=== PATIENT | male | born 1940 | race Hispanic/Latino ===

== ENCOUNTER 2021-12-19 22:51 | Inpatient (IN) | payer MEDICARE ==
[~2021-12-19] VITALS: Ht 185.4 cm; Wt 77.1 kg
[2021-12-20 01:49] LABS: APPEARANCE,URINE Clear (CLEAR); BILIRUBIN,URINE Negative (NEGATIVE); COLOR,URINE Yellow (YELLOW); GLUCOSE, URINE (UA) Negative (NEGATIVE); KETONES,URINE Negative (NEGATIVE); LEUKOCYTE ESTERASE ,URINE Trace (NEGATIVE); NITRATE,URINE Negative (NEGATIVE); OCCULT BLOOD,URINE Negative (NEGATIVE); PROTEIN,URINE Negative (NEGATIVE)
[2021-12-20 02:00] LABS: BACTERIA,URINE None Seen /HPF (None Seen); RBC,URINE None Seen /HPF (0-1); WBC,URINE None Seen /HPF (0-1)
[2021-12-20 02:48] LABS: CREATININE 0.9 mg/dL (0.5-1.5); POTASSIUM 3.5 mmol/L (3.5-5.1)
[2021-12-20 02:53] LABS: ALBUMIN 3.6 g/dL (3.5-5.0); BILIRUBIN,TOTAL 0.3 mg/dL (0.2-1.0); MAGNESIUM 2.1 mg/dL (1.80-2.40); TOTAL PROTEIN, SERUM 7.2 g/dL (6.0-8.3)
[2021-12-20 07:28] LABS: EOSINOPHILS % (AUTO) 2.9 % (0.0-8.0); HEMATOCRIT 41.6 % (42-54); LYMPHOCYTES % (AUTO) 21.5 % (21.0-51.0); MEAN CORPUSCULAR HEMOGLOBIN 29.2 pg (27.0-33.0); MEAN CORPUSCULAR VOLUME 91.2 fL (79-99); MONOCYTES % (AUTO) 10.4 % (3.0-13.0); NEUTROPHILS % (AUTO) 63.8 % (40.0-77.0); PLATELET COUNT (AUTO) 258 K/uL (130-400); RED BLOOD CELL COUNT(AUTO) 4.56 MIL/uL (4.50-6.20); RED CELL DISTRIBUTION WIDTH 13.8 % (11.0-15.5); WHITE BLOOD COUNT (AUTO) 8.3 K/uL (4.8-10.8)
[2021-12-20 08:15] VITALS: BP 160/76
[2021-12-20] MEDS ORDERED: LACTATED RINGERS 1000ML 1,000 ML IV SCH (08:30)
[2021-12-20] MEDS ORDERED: FAMOTIDINE 20MG VIAL IV SCH (09:00)
== END 2021-12-20 09:03 | disposition left against medical advice (07) | DRG 74 ==
LOC: EDH 22:51 → EDHIP 12-20 08:25 → EDH 12-20 09:15
PROVIDERS: ADMIT Internal Medicine; ATTEND Internal Medicine
DX: M54.12 Radiculopathy, cervical region (principal); G95.20 Unspecified cord compression; Z90.49 Acquired absence of other specified parts of digestive tract
CPT/HCPCS: 36415; 70450; 72125; 72141; 80053; 81001; 82550; 83735; 83880; 84484; 85025; 93005; G0378; J3490

== ENCOUNTER 2021-12-25 23:48 | Observation (INO) | payer MEDICARE ==
[~2021-12-25] VITALS: Ht 185.4 cm; Wt 86.2 kg
[2021-12-25] MEDS ORDERED: ACETAMINOPHEN 500 MG TABLET ONE (23:55)
[2021-12-26 00:11] LABS: BASOPHILS % (AUTO) 0.3 % (0.0-5.0); HEMATOCRIT 39.5 % (42-54); LYMPHOCYTES % (AUTO) 5.5 % (21.0-51.0); MEAN CORPUSCULAR HEMOGLOBIN 28.4 pg (27.0-33.0); MEAN CORPUSCULAR HGB CONC 32.4 g/dL (32.0-36.0); MEAN CORPUSCULAR VOLUME 87.6 fL (79-99); MONOCYTES % (AUTO) 8.8 % (3.0-13.0); PLATELET COUNT (AUTO) 229 K/uL (130-400); RED BLOOD CELL COUNT(AUTO) 4.51 MIL/uL (4.50-6.20); RED CELL DISTRIBUTION WIDTH 13.8 % (11.0-15.5); WHITE BLOOD COUNT (AUTO) 12.6 K/uL (4.8-10.8)
[2021-12-26 00:24] LABS: POTASSIUM 3.9 mmol/L (3.5-5.1)
[2021-12-26 00:28] LABS: APPEARANCE,URINE CLEAR (CLEAR); BILIRUBIN,URINE NEGATIVE (NEGATIVE); COLOR,URINE YELLOW (YELLOW); GLUCOSE, URINE (UA) NEGATIVE (NEGATIVE); KETONES,URINE 15 mg/dL (NEGATIVE); LEUKOCYTE ESTERASE ,URINE NEGATIVE (NEGATIVE); NITRATE,URINE NEGATIVE (NEGATIVE); OCCULT BLOOD,URINE NEGATIVE (NEGATIVE); PROTEIN,URINE NEGATIVE (NEGATIVE)
[2021-12-26 00:29] LABS: ALBUMIN 3.5 g/dL (3.5-5.0); BILIRUBIN,TOTAL 0.7 mg/dL (0.2-1.0); CRP QUANTITATIVE 44.8 mg/L (0.00-9.0); TOTAL PROTEIN, SERUM 7.8 g/dL (6.0-8.3)
[2021-12-26 00:41] LABS: BACTERIA,URINE Rare /HPF (None Seen); RBC,URINE None Seen /HPF (0-1); SQUAMOUS EPITHELIAL CELL,UR 0-2 /HPF (0-2); WBC,URINE 0-1 /HPF (0-1)
[2021-12-26] MEDS ORDERED: ACETAMINOPHEN 650 MG SUPPOSITORY RC PRN (03:00)
[2021-12-26] MEDS ORDERED: MORPHINE 4 MG SYG IV PRN (04:00)
[2021-12-26] MEDS ORDERED: HYDROCODONE/ACETAMINOPHEN 5/325 MG TAB PO PRN (04:00)
[2021-12-26] MEDS: 0.9%NACL 1000ML 1,000 ML IV SCH ×2 (04:20→16:20)
[2021-12-26 07:06] LABS: INR 1.06 (0.85-1.15); PROTHROMBIN TIME 11.5 SEC (9.6-11.6)
[2021-12-26] MEDS: PANTOPRAZOLE 40 MG/VIAL IVP SCH (09:03)
[2021-12-26 10:29] LABS: BASOPHILS % (AUTO) 0.5 % (0.0-5.0); EOSINOPHILS % (AUTO) 0.8 % (0.0-8.0); HEMATOCRIT 36.6 % (42-54); LYMPHOCYTES % (AUTO) 18.4 % (21.0-51.0); MEAN CORPUSCULAR HEMOGLOBIN 29.5 pg (27.0-33.0); MEAN CORPUSCULAR HGB CONC 32.5 g/dL (32.0-36.0); MEAN CORPUSCULAR VOLUME 90.8 fL (79-99); MONOCYTES % (AUTO) 15.8 % (3.0-13.0); NEUTROPHILS % (AUTO) 64.2 % (40.0-77.0); PLATELET COUNT (AUTO) 224 K/uL (130-400); RED BLOOD CELL COUNT(AUTO) 4.03 MIL/uL (4.50-6.20); RED CELL DISTRIBUTION WIDTH 13.8 % (11.0-15.5); WHITE BLOOD COUNT (AUTO) 9.8 K/uL (4.8-10.8)
[2021-12-26 10:48] LABS: ALBUMIN 3.1 g/dL (3.5-5.0); BILIRUBIN,TOTAL 1.1 mg/dL (0.2-1.0); CRP QUANTITATIVE 59.4 mg/L (0.00-9.0); POTASSIUM 3.7 mmol/L (3.5-5.1); TOTAL PROTEIN, SERUM 7.1 g/dL (6.0-8.3)
[2021-12-26 12:14] LABS: ERYTHROCYTE SEDIMENTATION RATE 52 MM/HR (0-20)
[2021-12-26] MEDS ORDERED: CEFTRIAXONE 2GM VIAL ONE (12:43)
[2021-12-26] MEDS: CEFTRIAXONE 2GM VIAL IVP SCH (13:00)
[2021-12-26 18:30] VITALS: BP 154/79
[2021-12-26 19:46] VITALS: BP 144/69
[2021-12-26 23:51] VITALS: BP 141/68
[2021-12-27 03:34] VITALS: BP 160/77
[2021-12-27 03:47] LABS: BASOPHILS % (AUTO) 0.7 % (0.0-5.0); EOSINOPHILS % (AUTO) 2.1 % (0.0-8.0); HEMATOCRIT 37.7 % (42-54); MEAN CORPUSCULAR HEMOGLOBIN 28.4 pg (27.0-33.0); MEAN CORPUSCULAR HGB CONC 32.4 g/dL (32.0-36.0); MEAN CORPUSCULAR VOLUME 87.7 fL (79-99); MONOCYTES % (AUTO) 11.2 % (3.0-13.0); NEUTROPHILS % (AUTO) 67.6 % (40.0-77.0); PLATELET COUNT (AUTO) 216 K/uL (130-400); RED CELL DISTRIBUTION WIDTH 13.4 % (11.0-15.5); WHITE BLOOD COUNT (AUTO) 7.5 K/uL (4.8-10.8)
[2021-12-27 04:05] LABS: CREATININE 0.9 mg/dL (0.5-1.5); POTASSIUM 3.7 mmol/L (3.5-5.1)
[2021-12-27] MEDS: 0.9%NACL 1000ML 1,000 ML IV SCH (05:40)
[2021-12-27 06:46] LABS: MAGNESIUM 2.1 mg/dL (1.80-2.40)
[2021-12-27 07:00] VITALS: BP 127/61
[2021-12-27] MEDS: PANTOPRAZOLE 40 MG/VIAL IVP SCH (08:19)
[2021-12-27] MEDS ORDERED: KETOROLAC 15MG/ML VIAL (15MG/ML) IV SCH (10:30)
[2021-12-27 11:00] VITALS: BP_SYST 116; BP_SYST 119; BP_SYST 126; BP_DIAS 55; BP_DIAS 56; BP_DIAS 59
[2021-12-27 11:00] LABS: HEMOGLOBIN A1C 5.8 % (4.0-6.0)
[2021-12-27] MEDS: CEFTRIAXONE 2GM VIAL IVP SCH (11:16)
[2021-12-27] MEDS ORDERED: CEFU500T67 PO (14:31)
[2021-12-27 15:00] VITALS: BP 137/86
== END 2021-12-27 19:05 | disposition still patient (30) ==
LOC: EDH 23:48 → INTOOBSV 12-26 02:57 → EDHIP 12-26 02:57 → 4CH 12-26 18:02
PROVIDERS: ADMIT Internal Medicine; ATTEND Internal Medicine
DX: M47.22 Other spondylosis with radiculopathy, cervical region (principal); Z20.822 Contact with and (suspected) exposure to COVID-19; M50.21 Other cervical disc displacement, high cervical region; M17.0 Bilateral primary osteoarthritis of knee; R50.9 Fever, unspecified; R26.89 Other abnormalities of gait and mobility; I80.8 Phlebitis and thrombophlebitis of other sites; D72.829 Elevated white blood cell count, unspecified; L03.114 Cellulitis of left upper limb; R42 Dizziness and giddiness; E66.9 Obesity, unspecified; W18.39XA Other fall on same level, initial encounter; Y93.89 Activity, other specified; Y92.098 Other place in other non-institutional residence as the place of occurrence of the external cause; Z79.899 Other long term (current) drug therapy
CPT/HCPCS: 36415 ×3; 71045; 73562; 76882; 80048; 80053 ×2; 81001; 82550 ×2; 83036; 83605; 83735 ×3; 84100; 84145 ×2; 84484; 85025 ×3; 85610; 85651 ×2; 85730; 86140 ×3; 86850; 86900; 86901; 87040 ×2; 87635; 87804 ×2; 93005; 93970; 96361 ×2; 96374; 96375 ×2; 96376; 97039 ×2; 97161; 99285; C9113 ×2; C9803; G0378 ×3; J0696 ×2; J1885; J7030

== ENCOUNTER 2023-05-16 20:54 | Emergency (ER) | payer MEDICARE, OTHER ==
[~2023-05-16] VITALS: Ht 177.8 cm; Wt 81.6 kg
[~2023-05-16 20:54] MED LIST: CEFU500T67 PO
[2023-05-16 21:23] LABS: BASOPHILS % (AUTO) 0.5 % (0.0-5.0); EOSINOPHILS % (AUTO) 0.6 % (0.0-8.0); HEMATOCRIT 39.4 % (42-54); LYMPHOCYTES % (AUTO) 12.8 % (21.0-51.0); MEAN CORPUSCULAR HEMOGLOBIN 29.7 pg (27.0-33.0); MEAN CORPUSCULAR HGB CONC 33.5 g/dL (32.0-36.0); MEAN CORPUSCULAR VOLUME 88.7 fL (79-99); MONOCYTES % (AUTO) 14.8 % (3.0-13.0); NEUTROPHILS % (AUTO) 70.9 % (40.0-77.0); PLATELET COUNT (AUTO) 248 K/uL (130-400); RED BLOOD CELL COUNT(AUTO) 4.44 MIL/uL (4.50-6.20); RED CELL DISTRIBUTION WIDTH 13.6 % (11.0-15.5); WHITE BLOOD COUNT (AUTO) 8.2 K/uL (4.8-10.8)
[2023-05-16 21:53] LABS: CREATININE 1.5 mg/dL (0.5-1.5); POTASSIUM 4.2 mmol/L (3.5-5.1)
[2023-05-16 22:03] LABS: ALBUMIN 3.4 g/dL (3.5-5.0); TOTAL PROTEIN, SERUM 8.3 g/dL (6.0-8.3)
[2023-05-17 01:17] LABS: BILIRUBIN,URINE 0.5 mg/dL (NEGATIVE); COLOR,URINE YELLOW (YELLOW); GLUCOSE, URINE (UA) NEGATIVE (NEGATIVE); KETONES,URINE NEGATIVE (NEGATIVE); LEUKOCYTE ESTERASE ,URINE NEGATIVE Leu/uL (NEGATIVE); NITRATE,URINE NEGATIVE (NEGATIVE); OCCULT BLOOD,URINE NEGATIVE (NEGATIVE); PH,URINE 5.5 (5.0-8.0); PROTEIN,URINE 30 mg/dL (NEGATIVE)
[2023-05-17 01:19] LABS: APPEARANCE,URINE CLEAR (CLEAR)
[2023-05-17] MEDS ORDERED: ACETAMINOPHEN 325 MG TAB PO ONE (03:00)
[2023-05-17 03:24] VITALS: BP 114/57
[2023-05-17] MEDS ORDERED: POLY17PO4 PO (04:07)
== END 2023-05-17 04:19 | disposition home or self-care (01) ==
LOC: EDH 20:54
DX: N28.89 Other specified disorders of kidney and ureter (principal); K59.00 Constipation, unspecified; M54.50 Low back pain, unspecified; I71.43 Infrarenal abdominal aortic aneurysm, without rupture; F17.200 Nicotine dependence, unspecified, uncomplicated; Z90.49 Acquired absence of other specified parts of digestive tract
CPT/HCPCS: 36415; 71045; 74018; 74176; 80053; 81003; 83605; 83690; 84484; 85025; 93005

== ENCOUNTER 2025-03-31 20:59 | Observation (INO) | payer OTHER ==
[~2025-03-31] VITALS: Ht 182.9 cm; Wt 94.4 kg
[~2025-03-31 20:59] MED LIST changes: +POLY17PO4 PO
[2025-03-31 21:46] LABS: BASOPHILS # (AUTO) 0.02 K/uL (0.00-0.20); BASOPHILS % (AUTO) 0.2 % (0.0-5.0); EOSINOPHILS # (AUTO) 0.01 K/uL (0.00-0.70); EOSINOPHILS % (AUTO) 0.1 % (0.0-8.0); HEMATOCRIT 38.6 % (42-54); IMMATURE GRANULOCYTE ABSOLUTE 0.06 K/uL (0-1); LYMPHOCYTES # (AUTO) 0.6 K/uL (1.0-4.8); LYMPHOCYTES % (AUTO) 4.6 % (21.0-51.0); MEAN CORPUSCULAR HEMOGLOBIN 29.1 pg (27.0-33.0); MEAN CORPUSCULAR HGB CONC 33.4 g/dL (32.0-36.0); MEAN CORPUSCULAR VOLUME 87.1 fL (79-99); MONOCYTES # (AUTO) 1.3 K/uL (0.1-1.0); MONOCYTES % (AUTO) 10.2 % (3.0-13.0); NEUTROPHILS # (AUTO) 10.9 K/uL (1.8-7.7); NEUTROPHILS % (AUTO) 84.4 % (40.0-77.0); PLATELET COUNT (AUTO) 249 K/uL (130-400); RED BLOOD CELL COUNT(AUTO) 4.43 MIL/uL (4.50-6.20); RED CELL DISTRIBUTION WIDTH 13.8 % (11.0-15.5); WHITE BLOOD COUNT (AUTO) 12.9 K/uL (4.8-10.8)
[2025-03-31] MEDS: 0.9%NACL 1000ML 1,000 ML IV ONE (22:04)
[2025-03-31] MEDS: mecliZINE HCL 25 MG TABLET PO ONE (22:04)
--- NOTE | 2025-03-31 22:36 | HMCIMG ---
CT HEAD/BRAIN W/O CONTRAST HISTORY: Dizziness COMPARISON: None TECHNIQUE: Multiple sequential axial images of the head were obtained from the base of the skull through vertex. Patient was not given contrast through intravenous route. FINDINGS: The ventricles and extraventricular CSF spaces are dilated consistent with cerebral atrophy. Nonspecific white matter changes seen. There is no midline shift, mass effect or herniation. No acute intracranial bleed is seen. Visualized portion of the paranasal sinuses are grossly within normal limits. IMPRESSION: 1. No acute intracranial bleed is seen. 2. Atrophy with white matter changes. CT was performed with one or more following dose reduction techniques: automated exposure control, adjustment of the mA and kv according to patient's size, or use of a iterative reconstruction technique.
[2025-03-31 22:39] LABS: CREATININE 1.3 mg/dL (0.5-1.3); POTASSIUM 4.6 mmol/L (3.5-5.1)
[2025-03-31 22:42] LABS: B-TYPE NATRIURETIC PEPTIDE 58 pg/mL (0-100)
[2025-03-31 22:44] LABS: MAGNESIUM 2.2 mg/dL (1.80-2.40)
--- NOTE | 2025-03-31 22:54 | HMCIMG ---
KNEE 3VWS LT HISTORY: Dizziness COMPARISON: None TECHNIQUE: 3 images of the left knee were obtained. FINDINGS: There is no acute displaced fracture or dislocation. Degenerative changes are seen. IMPRESSION: 1. Findings as described above.
--- NOTE | 2025-03-31 22:55 | HMCIMG ---
KNEE 3VWS RT HISTORY: Dizziness COMPARISON: None TECHNIQUE: 3 images of left knee were obtained. FINDINGS: There is no acute displaced fracture or dislocation. Degenerative changes are seen. IMPRESSION: 1. Findings as described above.
--- NOTE | 2025-03-31 22:55 | HMCIMG ---
WRIST COMP 3+VWS RT HISTORY: Dizziness COMPARISON: None TECHNIQUE: 3 images of the right wrist were obtained. FINDINGS: There is no acute displaced fracture or dislocation. Degenerative changes are seen. IMPRESSION: 1. Findings as described above.
--- NOTE | 2025-03-31 22:56 | HMCIMG ---
CHEST 1VW HISTORY: Dizziness COMPARISON: 05/16/2023 FINDINGS: A frontal projection of the chest was obtained. No acute pulmonary infiltrates is seen. The heart is borderline enlarged. Degenerative changes are seen. No evidence of aortic calcification is seen. IMPRESSION: 1. No acute pulmonary infiltrate is seen.
[2025-03-31] MEDS: ketOROlac 15MG/ML VIAL (15MG/ML) IV ONE (23:31)
--- NOTE | 2025-03-31 23:43 | ERN ---
ED Note History of Present Illness Stated Complaint: DIZZINESS Chief Complaint: Multiple Complaints Time Seen by MD: 21:10 Time Seen by Midlevel: 21:10 Dictation: The patient is an 84-year-old male with history of cholecystectomy who presents to the emergency department with complaints of dizziness. Patient reports onset of symptoms was two weeks ago. Reports dizziness worse with movement but reports and feeling if imbalance. Patient reports he had a ground level fall yesterday due to the dizziness. Reports he landed on his knees. Patient denies any head trauma, denies any LOC, denies any neck pain or any other injuries. Patient denies any nausea or vomiting, fevers. Patient also reports that he has been having nontraumatic intermediate right wrist pain Allergies: Coded Allergies: No Known Drug Allergies (Unverified Allergy, Unknown, 12/19/21) Home Meds Active Scripts Polyethylene Glycol 3350 (Miralax) 17 Gm Powd.pack, 17 GM PO DAILY, #30 PACK 0 Refills Prov:JEANNA ALTAMIRANO MD 05/17/23 Cefuroxime Axetil (Cefuroxime) 500 Mg Tablet, 500 MG PO BID for 7 Days, #14 TAB 0 Refills Prov:MELANIA MORGAN MD 12/27/21 Past Medical History Past Medical History: Other Additional Past Medical Hx: Cervical radiculopathy due to disc disease Surgical History: Cholecystectomy Social History: Smokers RN Note Reviewed/Agreed w/PFSH: Yes Review of System Dictation Constitutional: Negative for fever,chills, and weight loss Eyes: Negative for injury, pain,redness, and discharge ENT: Negative for injury,pain or swelling Cardiovascular: Negative for chest pain, palpitations, and edema Respiratory: Negative for shortness of breath, cough, and wheezing, Abdomen/GI: Negative for abdominal pain, nausea, vomiting, diarrhea, and constipation Back: Negative for injury and pain : Negative for injury, bleeding and discharge MS/Extremity: Positive for bilateral knee pain, right wrist pain Skin: Negative for rash, and discoloration Neuro: Negative for headache, weakness, numbness, tingling, and seizure positive for dizziness Psych: Negative for suicide ideation, homicidal ideation, and hallucinations Initial Vital Sign VS Vital Signs Date Time Temp Pulse Resp B/P (MAP) Pulse Ox O2 Delivery O2 Flow Rate FiO2 03/31/25 21:00 98.8 87 18 128/73 95 Room Air 03/31/25 22:08 0 21 Physical Exam Dictation Vital Signs reviewed General Appearance: Alert, oriented x 3, no acute distress, well developed, nourished. Head and Face: non-traumatic. Eyes: PERRL, pink conjunctivas, eyelid no trauma, anterior chamber with arcus senilis. Ears: Pinnas intact and no signs of trauma or erythema ear canals clear and no discharge TM no erythema Nose: No discharge, no bleeding. Oropharynx: Mouth normal, tongue pink. pharynx clear,no erythema, tonsils no exudates, no abscesses noted, mucous membrane moist Neck: Supple, non-tender, no thyromegaly, no masses, no JVD, no bruits Breast:Deferred Chest:No tenderness, no crepitus, no paradoxical movement, no retractions Lungs:Clear, well-ventilated, symmetric, no rales, no wheezing, no rhonchi, no stridor, good breath sounds bilaterally Heart: Regular rate, regular rhythm, no murmur, no gallops Vascular: no peripheral edema, Abdomen: Soft, positive bowel sounds, nondistended, no guarding, nontender, no rebound, no masses no hepatomegaly, no splenomegaly, no Smith's sign, no hernias. Rectal: Deferred Genital: Deferred Neurological: Normal speech, motor function intact, sensory function intact , upper extremities equal in strength, lower extremities equal in strength, no slurred speech, no facial droop Musculoskeletal: Neck nontender, full range of motion, back nontender, full range of motion, Extremities: nontender, full range of motion Skin: Color pink, dry, no turgor, no rash, no lacerations, no abrasions, no contusions. Lymphatic: Deferred Results (Laboratory/Radiology) Laboratory/Radiology Laboratory Tests Test 03/31/25 21:22 03/31/25 21:38 03/31/25 22:22 04/01/25 00:35 Uric Acid 8.0 mg/dL (2.6-7.2) H White Blood Count 12.9 K/uL (4.8-10.8) H Red Blood Count 4.43 MIL/uL (4.50-6.20) L Hemoglobin 12.9 g/dL (14.0-18.0) L Hematocrit 38.6 % (42-54) L Mean Corpuscular Volume 87.1 fL (79-99) Mean Corpuscular Hemoglobin 29.1 pg (27.0-33.0) Mean Corpuscular Hemoglobin Concent 33.4 g/dL (32.0-36.0) Red Cell Distribution Width 13.8 % (11.0-15.5) Platelet Count 249 K/uL (130-400) Mean Platelet Volume 10.4 fL (7.5-10.5) Immature Granulocyte % (Auto) 0.5 % (0-1) Neutrophils (%) (Auto) 84.4 % (40.0-77.0) H Lymphocytes (%) (Auto) 4.6 % (21.0-51.0) L Monocytes (%) (Auto) 10.2 % (3.0-13.0) Eosinophils (%) (Auto) 0.1 % (0.0-8.0) Basophils (%) (Auto) 0.2 % (0.0-5.0) Neutrophils # (Auto) 10.9 K/uL (1.8-7.7) H Lymphocytes # (Auto) 0.6 K/uL (1.0-4.8) L Monocytes # (Auto) 1.3 K/uL (0.1-1.0) H Eosinophils # (Auto) 0.01 K/uL (0.00-0.70) Basophils # (Auto) 0.02 K/uL (0.00-0.20) Absolute Immature Granulocyte (auto 0.06 K/uL (0-1) Nucleated Red Blood Cells 0.0 % (0.0-0.19) White Cell Morphology Comment See comments Troponin I High Sensitivity 11 ng/L (4-75) B-Type Natriuretic Peptide 58 pg/mL (0-100) Sodium Level 137 mmol/L (136-145) Potassium Level 4.6 mmol/L (3.5-5.1) Chloride Level 101 mmol/L (101-111) Carbon Dioxide Level 27 mmol/L (21-32) Blood Urea Nitrogen 16 mg/dL (7-18) Creatinine 1.3 mg/dL (0.5-1.3) Glomerular Filtration Rate Calc 54 mL/min (>90) Random Glucose 111 mg/dL (70-105) H Total Calcium 9.0 mg/dL (8.5-10.1) Magnesium Level 2.20 mg/dL (1.80-2.40) Total Creatine Kinase 60 U/L (21-232) # Urine Color YELLOW (YELLOW) Urine Appearance CLEAR (CLEAR) Urine pH 5.5 (5.0-8.0) Urine Specific [place] 1.020 (1.001-1.031) Urine Protein 20 mg/dL (NEGATIVE) H Urine Glucose (UA) NEGATIVE mg/dL (NEGATIVE) Urine Ketones 10 mg/dL (NEGATIVE) H Urine Occult Blood NEGATIVE (NEGATIVE) Urine Nitrate NEGATIVE (NEGATIVE) Urine Bilirubin NEGATIVE mg/dL (NEGATIVE) Urine Urobilinogen 3 mg/dL (0.2-1.0) H Urine Leukocyte Esterase NEGATIVE Alyssa/uL Urine RBC 0-1 /HPF (0-1) Urine WBC 2-5 /HPF (0-1) H Urine Squamous Epithelial Cells RARE /HPF (0-2) Urine Bacteria RARE /HPF (None Seen) Urine Hyaline Casts 6-10 /LPF (0-1 /LPF) H Labs Reviewed?: Yes EKG: (+) rhythm (Sinus rhythm) EKG Comment: Date:03/31/2025 Time:2226 Ventricular rate:85 OH interval:168 QRS duration:83 QT/QTc:360 EKG interpretation: Sinus rhythm Reviewed by ED Attending no STEMI ED Course ED Course Orders Procedure Category Date Status Time Cbc With Differential LAB 03/31/25 Complete 21:24 B-Type Natriuretic LAB 03/31/25 Complete Peptide 21:24 Chest 1vw RAD 03/31/25 Resulted 21:24 12 Lead Ekg Tracing- EKG 03/31/25 Logged Technical 21:24 0.9%Nacl 1000ml (Ns PHA 03/31/25 In Process 1000ml) 21:30 Magnesium LAB 03/31/25 Complete 21:24 Creatine Kinase, Total LAB 03/31/25 Complete 21:24 Troponin I High LAB 03/31/25 Complete Sensitivity 21:24 Urinalysis Profile LAB 03/31/25 Complete 21:24 Orthostatic Vital CPOE 03/31/25 Transmitted Signs 21:24 Ct Head/Brain W/O CT 03/31/25 Resulted Contrast 21:24 Wrist Comp 3+Vws Rt RAD 03/31/25 Resulted 21:24 Knee 3vws Rt RAD 03/31/25 Resulted 21:24 Knee 3vws Lt RAD 03/31/25 Resulted 21:24 Basic Metabolic Panel LAB 03/31/25 Complete 21:24 Meclizine Hcl 25 Mg PHA 03/31/25 Complete (Antivert 25 Mg) 21:30 Uric Acid LAB 03/31/25 Complete 23:15 Ketorolac PHA 03/31/25 Complete Tromethamine 15mg/Ml 23:30 Ceftriaxone 1g Vial PHA 04/01/25 Complete (Rocephine 1g Inj) 00:30 Edm Admit Bridge Order ADM 04/01/25 Transmitted 00:58 Admit Orders ADM 04/01/25 Transmitted 00:58 Vital Signs(Adult CPOE 04/01/25 Transmitted Hospitalist) 01:47 Acetaminophen 325 Tab PHA 04/01/25 In Process (Tylenol 325mg Tab 02:00 Acetaminophen 325 Tab PHA 04/01/25 In Process (Tylenol 325mg Tab 02:00 Ondansetron 4mg Inj PHA 04/01/25 In Process (Zofran 4mg Inj) 02:00 Nurse To Enter Home CPOE 04/01/25 Transmitted Medication 01:47 Admit Orders ADM 04/01/25 Transmitted 01:47 Activity: Ad Janice CPOE 04/01/25 Transmitted 01:47 Heart Healthy Diet DIET 04/01/25 Transmitted Breakfast Apply Scds CPOE 04/01/25 Transmitted 01:47 Famotidine 20mg Tab PHA 04/01/25 In Process (Pepcid 20mg Tab) 09:00 0.9%Nacl 1000ml (Ns PHA 04/01/25 In Process 1000ml) 02:00 Ceftriaxone 1g Vial PHA 04/01/25 Complete (Rocephine 1g Inj) 02:00 Cbc With Differential LAB 04/01/25 Logged 04:00 Comprehensive LAB 04/01/25 Logged Metabolic Panel 04:00 Magnesium LAB 04/01/25 Logged 04:00 Erythrocyte LAB 04/01/25 Logged Sedimentation Rate 04:00 Meclizine Hcl 25 Mg PHA 04/01/25 In Process (Antivert 25 Mg) 02:00 Ketorolac PHA 04/01/25 In Process Tromethamine 15mg/Ml 02:00 Initiate Hypoglycemia MATI 04/01/25 In Process Protocol 01:56 Dextrose 50%-Water PHA 04/01/25 In Process (D50w) 02:00 Glucagon 1mg Kit PHA 04/01/25 In Process (Glucagon 1mg Kit) 02:00 Initiate MATI 04/01/25 In Process Hyperglycemia Protoco 01:56 Insulin Regular, PHA 04/01/25 In Process Human 3ml (Humulin R 07:30 Magnesium 2gm Premix PHA 04/01/25 In Process 50ml (Magnesium 2gm 02:00 Initiate Po MATI 04/01/25 In Process Hypokalemia Protoc 01:56 Potassium Chloride PHA 04/01/25 In Process 20meq/100ml ([place] 02:00 Potassium Chl 10% PHA 04/01/25 In Process Elixir 20meq (Kcl 10% 02:00 Potassium Chloride PHA 04/01/25 In Process 20meq Er (K-Dur/Klor- 02:00 Notify Physician If CPOE 04/01/25 Transmitted There Is 01:56 Notify Md On The Next CPOE 04/01/25 Transmitted 01:56 Notify Md On The CPOE 04/01/25 Transmitted Next(Cont.) 01:56 Hemoglobin A1c LAB 04/01/25 Logged 04:00 Ceftriaxone 1g Vial PHA 04/02/25 In Process (Rocephine 1g Inj) 01:00 Current Medications Medications (Trade) Dose Ordered Sig/Madeleine Route PRN Reason Start Time Stop Time Status Last Admin Dose Admin Acetaminophen (TYLenol 325MG TAB) 650 mg Q4H PRN PO MILD PAIN (1-3) 04/01/25 02:00 05/01/25 01:59 Acetaminophen (TYLenol 325MG TAB) 650 mg Q6H PRN PO TEMPERATURE GREATER THAN 101.5 04/01/25 02:00 05/01/25 01:59 Ceftriaxone Sodium 1 gm/ Sodium Chloride 50 ml @ 100 mls/hr Q24H IV 04/01/25 02:00 04/01/25 02:03 DC Ceftriaxone Sodium (ROCEphine 1G INJ) 1 gm ONCE ONCE IVPB 04/01/25 00:30 04/01/25 00:31 DC 04/01/25 00:50 Ceftriaxone Sodium (ROCEphine 1G INJ) 1 gm Q24H IVPB 04/02/25 01:00 04/12/25 00:59 Dextrose (D50w) 50 ml AD PRN IV HYPOGLYCEMIA PROTOCOL 04/01/25 02:00 05/01/25 01:59 Famotidine (Pepcid 20mg Tab) 20 mg DAILY PO 04/01/25 09:00 05/01/25 08:59 Glucagon (Glucagon 1mg Kit) 1 mg AD PRN IM HYPOGLYCEMIA PROTOCOL 04/01/25 02:00 05/01/25 01:59 Insulin Human Regular (humuLIN R 100 UNIT/ML 3ML) INSULIN SLIDING SCAL... ACHS SQ 04/01/25 07:30 05/01/25 07:29 Ketorolac Tromethamine (toRADol) 15 mg ONCE ONCE IV 03/31/25 23:30 03/31/25 23:31 DC 03/31/25 23:31 Ketorolac Tromethamine (toRADol) 15 mg Q6H PRN IV MODERATE PAIN (4-6) 04/01/25 02:00 04/06/25 01:59 Magnesium Sulfate 50 ml @ 0 mls/hr PROTOCOL PRN IV OTHER [SEE ORDER COMMENTS] 04/01/25 02:00 05/01/25 01:59 Meclizine HCl (ANTIvert 25 mg) 25 mg ONCE ONCE PO 03/31/25 21:30 03/31/25 21:31 DC 03/31/25 22:04 Meclizine HCl (ANTIvert 25 mg) 25 mg TID PRN PO DIZZINESS 04/01/25 02:00 05/01/25 01:59 Ondansetron HCl (zoFRAN 4MG INJ) 4 mg Q6H PRN IV NAUSEA/VOMITING 04/01/25 02:00 05/01/25 01:59 Potassium Chloride 100 ml @ 100 mls/hr AD PRN IV POTASSIUM PROTOCOL 04/01/25 02:00 05/01/25 01:59 Potassium Chloride (K-Dur/Klor-Con 20meq) 20 meq AD PRN PO POTASSIUM PROTOCOL 04/01/25 02:00 05/01/25 01:59 Potassium Chloride (KCl 10% Elixir 20meq/15ml) 20 meq AD PRN PO POTASSIUM PROTOCOL 04/01/25 02:00 05/01/25 01:59 Sodium Chloride 1,000 ml @ 100 mls/hr Q10H IV 04/01/25 02:00 05/01/25 01:59 04/01/25 02:13 Sodium Chloride 1,000 ml @ 125 mls/hr ONCE ONCE IV 03/31/25 21:30 04/01/25 05:29 03/31/25 22:04 Vital Signs Date Time Temp Pulse Resp B/P (MAP) Pulse Ox O2 Delivery O2 Flow Rate FiO2 03/31/25 23:15 98.8 83 18 135/65 95 Room Air* 0 21 03/31/25 22:08 83 18 136/64 96 Room Air* 0 21 03/31/25 21:00 98.8 87 18 128/73 95 Room Air Medical Decision Making MDM MDM: The patient is an 84-year-old male with history of cholecystectomy who presents to the emergency department with complaints of dizziness. Patient reports onset of symptoms was two weeks ago. Reports dizziness worse with movement but reports and feeling if imbalance. Patient reports he had a ground level fall yesterday due to the dizziness. Reports he landed on his knees. Patient denies any head trauma, denies any LOC, denies any neck pain or any other injuries. Patient denies any nausea or vomiting, fevers. Patient also reports that he has been having nontraumatic intermediate right wrist pain CBC showed mild leukocytosis, mild normocytic anemia, chemistry showed GFR of 54, no electrolyte imbalance, negative troponin, negative BNP, elevated uric acid, x-rays showed no acute pathology. Patient will be admitted to hydration and further evaluation Differential diagnosis: Dehydration, orthostatic hypotension, ACS, intracerebr al hemorrhage vertigo Comorbidities: Cholecystectomy Tests considered and not ordered secondary to shared decision making include: none Previous outside records reviewed: none Risk of complication and/or morbidity or mortality of patient management: The p atient meets criteria for admission. Need for emergency major/minor surgery: No There are no social concerns with this patient. I independently interpreted the tests I ordered (labs, urinalysis, etc.). I discussed the case with the hospitalist for admission. Margaret JOCELYNE who accepts admission I discussed the case with the following specialists: none. Historian: pateint. I independently interpreted imaging studies and EKGs that I ordered (US, CT, XR, EKG, etc.). External chart review: none. Medical management and examination interpretation discussions were had by me with other qualified healthcare professionals as indicated for the patient's care. DX & DISP Disposition: Inpatient Decision to Admit Date: April 01, 2025 Decision to Admit Time: 01:01 Departure Impression: Primary Impression: Dehydration Additional Impressions: Dizziness, Leukocytosis, Gout, Fall Condition: Stable Referrals: SELF,REFERRAL (PCP) I have examined patient, & reviewed all documents, & agreed W/ the Diagnosis, and Plan MATEUSZ SPRAGUE March 31, 2025 23:43 YANIV TOMPKINS DO April 01, 2025 02:16
[2025-04-01] VITALS (8 sets, daily range): BP systolic 121–158; BP diastolic 59–81; PULSE 68–80; RESP 17–22; TEMP 97.2–98.4; O2SAT 98
[2025-04-01 00:44] LABS: APPEARANCE,URINE CLEAR (CLEAR); BILIRUBIN,URINE NEGATIVE (NEGATIVE); COLOR,URINE YELLOW (YELLOW); GLUCOSE, URINE (UA) NEGATIVE (NEGATIVE); KETONES,URINE 10 mg/dL (NEGATIVE); LEUKOCYTE ESTERASE ,URINE NEGATIVE Leu/uL (NEGATIVE); NITRATE,URINE NEGATIVE (NEGATIVE); OCCULT BLOOD,URINE NEGATIVE (NEGATIVE); PH,URINE 5.5 (5.0-8.0); PROTEIN,URINE 20 mg/dL (NEGATIVE); UROBILINOGEN,URINE 3 mg/dL (0.2-1.0)
--- NOTE | 2025-04-01 00:44 | NUR ---
ASSUMED PT CARE
[2025-04-01 00:46] LABS: ADD UA MICROSCOPIC YES
[2025-04-01 00:48] LABS: BACTERIA,URINE RARE /HPF (None Seen); MUCUS,URINE RARE LPF (None Seen); RBC,URINE 0-1 /HPF (0-1); SQUAMOUS EPITHELIAL CELL,UR RARE /HPF (0-2)
[2025-04-01] MEDS: cefTRIAXone 1G VIAL IVPB ONE (00:50)
--- NOTE | 2025-04-01 01:01 | HP ---
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 Seen and examined patient in the ER, awake alert and coherent. Patient denies headache, chest pain, palpitation, cough, shortness of breaths, nausea and vomiting. Latest vital signs temperature 98.8, heart rate 83, blood pressure 135/65 saturation 95% on room air. Labs: WBC 12.9 with negative left shift of neutrophils 84, hemoglobin 12.9, hematocrit 38, platelet count 249. Uric acid eight BNP 58, troponin 11, glucose 111 the rest of the chemistries normal. Left wrist x-ray result revealed no acute displaced fracture or dislocation degenerative changes are seen. Left knee and right knee x-ray result revealed no acute displaced fracture or dislocation degenerative changes are seen. CT head without contrast result revealed no acute intracranial bleed is seen. Atrophy with white matter changes. Chest x-ray result revealed no acute pulmonary infiltrate is seen. While in the ER patient received meclizine 25 mg p.o., Toradol 15 mg IV Rocephin 1 g IV and started on NS at 125 ml/hr. We will admit patient for further medical management. REVIEW OF SYSTEMS CONSTITUTIONAL: Denies fevers, chills, or night sweats. No unintentional weight loss reported. NEUROLOGICAL: Complaints of dizziness Denies headache, amaurosis fugax, motor weakness, sensory deficit, gait abnormalities, or tremors. ENT: No hearing loss, otalgia, otorrhea, rhinitis, rhinorrhea, hoarseness, or sore throat. CARDIOVASCULAR: Denies any exertional angina, dyspnea on exertion, orthopnea, paroxysmal nocturnal dyspnea, palpitations, life-threatening arrhythmias, claudication. PULMONARY: Denies any shortness of breath, cough, phlegm/sputum, hemoptysis, pleuritic chest pain. SLEEP: Denies morning headaches, daytime somnolence or napping. Denies di fficulty falling asleep, staying asleep, waking from sleep. Denies knowledge of snoring. GASTROINTESTINAL: Denies any type of dysphagia to either liquids or solids. Denies nausea, vomiting, pyrosis, early satiety, abdominal pain, diarrhea, constipation, or changes in stool consistency or caliber. Denies coffee-ground emesis, hematemesis, hematochezia, or melanotic stools. GENITOURINARY: Denies frequency, urgency, nocturia, hematuria or incontinence (Storage/Irritative symptoms.) Low urinary stream, straining to void, urinary intermittency or hesitancy, splitting of the voiding stream, terminal dribbling. ENDOCRINOLOGIC: Denies polyuria, polydipsia, polyphagia or heat/cold intolerances. HEMATOLOGIC: Denies thrombophilia/previous clots, or coagulopathy/bleeding disorders. ONCOLOGIC: Denies personal history of malignancy. DERMATOLOGIC: Denies rashes or pruritus. PSYCHIATRIC: Denies any suicidal or homicidal ideation. Denies hallucinations. 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 Patient denies alcohol tobacco and recreational drug use] FAMILY HISTORY: [ Cardiovascular disease] Coded Allergies: No Known Drug Allergies (Unverified Allergy, Unknown, 12/19/21) PHYSICAL EXAM GENERAL APPEARANCE: The patient is awake, alert, and oriented, in no acute cardiopulmonary distress. NEUROLOGICAL: Cranial nerves II-XII grossly intact. Motor is 5/5 in bilateral upper and lower extremities proximal to distal. No sensory deficits. HEENT: Face is symmetric. Pupils are equal and reactive. Extraocular movements are intact. NECK: Supple. No JVD. No thyromegaly. No submental, submandibular, pre- /postauricular, occipital or supraclavicular lymphadenopathy. CHEST: Normal chest expansion. No Telemetry. LUNGS: Absence of any rales, rhonchi or any wheezing. CARDIOVASCULAR: Regular. S1 and S2 normal. No appreciable rubs, murmurs or gallops. ABDOMEN: Soft, nontender, and nondistended. There is no rebound, voluntary guarding, or rigidity. : Deferred. No [place]ason. EXTREMITIES: Right wrist pain Non-edematous and not cyanotic. No clubbing. Good capillary refill. SKIN: No skin breakdown. Vital Sign (Last 24 Hours) 03/31/25 23:15 Temp 98.8 Pulse 83 Resp 18 B/P (MAP) 135/65 Pulse Ox 95 O2 Delivery Room Air* O2 Flow Rate 0 FiO2 21 LABS: Laboratory: Test 04/01/25 00:35 03/31/25 22:22 03/31/25 21:38 03/31/25 21:22 Range/Units Urine Color YELLOW YELLOW Urine Appearance CLEAR CLEAR Urine pH 5.5 5.0-8.0 Urine Specific [place] 1.020 1.001-1.031 Urine Protein 20 H NEGATIVE mg/dL Urine Glucose (UA) NEGATIVE NEGATIVE mg/dL Urine Ketones 10 H NEGATIVE mg/dL Urine Occult Blood NEGATIVE NEGATIVE Urine Nitrate NEGATIVE NEGATIVE Urine Bilirubin NEGATIVE NEGATIVE mg/dL Urine Urobilinogen 3 H 0.2-1.0 mg/dL Urine Leukocyte Esterase NEGATIVE NEGATIVE Alyssa/uL Urine RBC 0-1 0-1 /HPF Urine WBC 2-5 H 0-1 /HPF Urine Squamous Epithelial Cells RARE 0-2 /HPF Urine Bacteria RARE None Seen /HPF Urine Hyaline Casts 6-10 H 0-1 /LPF /LPF Sodium Level 137 136-145 mmol/L Potassium Level 4.6 3.5-5.1 mmol/L Chloride Level 101 101-111 mmol/L Carbon Dioxide Level 27 21-32 mmol/L Blood Urea Nitrogen 16 7-18 mg/dL Creatinine 1.3 0.5-1.3 mg/dL Glomerular Filtration Rate Calc 54 >90 mL/min Random Glucose 111 H 70-105 mg/dL Total Calcium 9.0 8.5-10.1 mg/dL Magnesium Level 2.20 1.80-2.40 mg/dL Total Creatine Kinase 60 # 21-232 U/L White Blood Count 12.9 H 4.8-10.8 K/uL Red Blood Count 4.43 L 4.50-6.20 MIL/uL Hemoglobin 12.9 L 14.0-18.0 g/dL Hematocrit 38.6 L 42-54 % Mean Corpuscular Volume 87.1 79-99 fL Mean Corpuscular Hemoglobin 29.1 27.0-33.0 pg Mean Corpuscular Hemoglobin Concent 33.4 32.0-36.0 g/dL Red Cell Distribution Width 13.8 11.0-15.5 % Platelet Count 249 130-400 K/uL Mean Platelet Volume 10.4 7.5-10.5 fL Immature Granulocyte % (Auto) 0.5 0-1 % Neutrophils (%) (Auto) 84.4 H 40.0-77.0 % Lymphocytes (%) (Auto) 4.6 L 21.0-51.0 % Monocytes (%) (Auto) 10.2 3.0-13.0 % Eosinophils (%) (Auto) 0.1 0.0-8.0 % Basophils (%) (Auto) 0.2 0.0-5.0 % Neutrophils # (Auto) 10.9 H 1.8-7.7 K/uL Lymphocytes # (Auto) 0.6 L 1.0-4.8 K/uL Monocytes # (Auto) 1.3 H 0.1-1.0 K/uL Eosinophils # (Auto) 0.01 0.00-0.70 K/uL Basophils # (Auto) 0.02 0.00-0.20 K/uL Absolute Immature Granulocyte (auto 0.06 0-1 K/uL Nucleated Red Blood Cells 0.0 0.0-0.19 % White Cell Morphology Comment See comments Troponin I High Sensitivity 11 4-75 ng/L B-Type Natriuretic Peptide 58 0-100 pg/mL Uric Acid 8.0 H 2.6-7.2 mg/dL DIAGNOSTICS / RADIOLOGY: [ ] ASSESSMENT: Gout POA Dizziness POA Fall POA Leukocytosis POA Acute normocytic normochromic anemia POA Right wrist pain POA Osteoarthritis POA DJD with cervical spine spondylosis POA Cord impingement POA History of fall POA PLAN: We will admit patient in medical floor Start on heart healthy diet Start on NS at 100 mL x1 bag We will start on Rocephin 1 g IV daily for empiric coverage Will add prn medication for pain ,nausea,vomiting and fever Will reconcile home meds once medlist available Will check labs in am We will replace electrolytes as needed per protocol Further orders to follow depending on above results Case discussed with attending physician and came up with above treatment and plan of care. ADVANCED CARE PLANNING 1. Which of the following were discussed? Hospice Care - No Therapeutic options - Yes Advance Directives - No Other discussions - 2. Discussed with who? Patient 3. Voluntary nature of this service was explained to the patient? Yes 4. Amount of time spent - _22 5. Reviewed by Physician? (if this service was performed by NPP) Yes Patient seen and examined by me. Agree with note by PCTS SEE ADDITIONAL ORDERS PER CHART DISCUSSED WITH NURSING STAFF PARAMJIT DON GRINDER MILL OPERATOR April 01, 2025 01:01
--- NOTE | 2025-04-01 01:23 | NUR ---
HOME MEDS NOT AVAI AT BEDSIDE
[2025-04-01] MEDS ORDERED: PoTASSium chloRIDE 20MEQ/100ML 100 ML IV PRN (02:00)
[2025-04-01] MEDS ORDERED: GLUCAGON 1MG KIT 1 MG ML IM PRN (02:00)
[2025-04-01] MEDS ORDERED: PoTASSium chloRIDE 20MEQ ER 20 MEQ ERTAB PO PRN (02:00)
[2025-04-01] MEDS ORDERED: MAGNESIUM 2GM PREMIX 50ML 50 ML IV PRN (02:00)
[2025-04-01] MEDS ORDERED: cefTRIAXone 1G VIAL 1 GM in 0.9%NACL 50ML 50 ML IV SCH (02:00)
[2025-04-01] MEDS ORDERED: ondanSETRON 4MG INJ IV PRN (02:00)
[2025-04-01] MEDS ORDERED: acetaMINOPHEN 325 MG TAB PO PRN ×2 (02:00)
[2025-04-01] MEDS ORDERED: PoTASSium chl 10% ELIXIR 20MEQ 20 MEQ/15 ML UDCUP PO PRN (02:00)
[2025-04-01] MEDS ORDERED: DEXTROSE 50%-WATER 50 ML DISP.SYRIN IV PRN (02:00)
[2025-04-01] MEDS ORDERED: mecliZINE HCL 25 MG TABLET PO PRN (02:00)
[2025-04-01] MEDS: 0.9%NACL 1000ML 1,000 ML IV SCH (02:13)
--- NOTE | 2025-04-01 02:17 | NUR ---
ORTHO VS LYING 143/55 SITTING 156/66 STANDING 145/65
--- NOTE | 2025-04-01 02:40 | NUR ---
admit note admit to room 402 via stretcher from er, patient awake, alert, ox3, no sob, no c/o pain at this time, placed on fall precautions, ivf infusing well, did not bring medications, per patient doesnt take any medications, only supplements, teach plan of care and expected outcome, patient verbalizes understanding via teach back
[2025-04-01 06:03] LABS: BASOPHILS # (AUTO) 0.02 K/uL (0.00-0.20); BASOPHILS % (AUTO) 0.3 % (0.0-5.0); EOSINOPHILS # (AUTO) 0.06 K/uL (0.00-0.70); EOSINOPHILS % (AUTO) 0.8 % (0.0-8.0); HEMATOCRIT 33.2 % (42-54); IMMATURE GRANULOCYTE ABSOLUTE 0.03 K/uL (0-1); LYMPHOCYTES # (AUTO) 1.4 K/uL (1.0-4.8); LYMPHOCYTES % (AUTO) 18.2 % (21.0-51.0); MEAN CORPUSCULAR HEMOGLOBIN 28.7 pg (27.0-33.0); MEAN CORPUSCULAR HGB CONC 32.5 g/dL (32.0-36.0); MEAN CORPUSCULAR VOLUME 88.3 fL (79-99); MONOCYTES # (AUTO) 1.1 K/uL (0.1-1.0); NEUTROPHILS % (AUTO) 66.3 % (40.0-77.0); PLATELET COUNT (AUTO) 229 K/uL (130-400); RED BLOOD CELL COUNT(AUTO) 3.76 MIL/uL (4.50-6.20); RED CELL DISTRIBUTION WIDTH 13.6 % (11.0-15.5); WHITE BLOOD COUNT (AUTO) 7.5 K/uL (4.8-10.8)
[2025-04-01 06:11] LABS: ALBUMIN 2.3 g/dL (3.5-5.0); BILIRUBIN,TOTAL 0.6 mg/dL (0.2-1.0); CREATININE 1.3 mg/dL (0.5-1.3); TOTAL PROTEIN, SERUM 6.6 g/dL (6.0-8.3)
--- NOTE | 2025-04-01 06:31 | EKG ---
[facility] Test Date: 2025-03-31 Test Time: 22:27:55 Pat Name: HANNY CARMONA Department: [facility] Room: 402 1 Gender: M Family Court Counsellor: [id number] : 1940 Requested By: MATEUSZ SPRAGUE Order Number: [id number] Reading MD: Loki Galo Measurements Intervals [place] Rate: 85 P: 75 KS: 168 QRS: -6 QRSD: 83 T: 30 QT: 360 QTc: 428 Interpretive Statements Sinus rhythm Compared to ECG 05/16/2023 21:06:22 No significant changes Electronically Signed On 04-04-2025 22:11:05 CDT by Loki Galo Please click the below link to view image of tracing.
[2025-04-01] MEDS: INSULIN humuLIN R 100 UNIT/ML 3ML SQ SCH (06:32)
[2025-04-01 06:36] LABS: HEMOGLOBIN A1C 5.6 % (4.0-6.0)
[2025-04-01 07:32] LABS: ERYTHROCYTE SEDIMENTATION RATE 85 MM/HR (0-20)
[2025-04-01] MEDS: FAMOTIDINE 20MG TAB PO SCH (09:05)
[2025-04-01 09:33] LABS: URIC ACID 7.6 mg/dL (2.6-7.2)
--- NOTE | 2025-04-01 13:24 | NUR ---
DCP: HOME Pt currently lives alone in his home. Pt uses a cane to ambulate in his home. Pt is able to complete ADLs independently. Pt does not currently have a PCP, SW provided pt community resources for him to contact and access. At [place] pt will go home and family can assist with transportation. Addendum: 04/01/25 at 1326 by GINA WINN SS Amended: Links added.
[2025-04-01] MEDS: ketOROlac 15MG/ML VIAL (15MG/ML) IV PRN (18:26)
[2025-04-02] VITALS: BP 154/81; PULSE 73; RESP 17; TEMP 97.7
[2025-04-02] MEDS: cefTRIAXone 1G VIAL IVPB SCH (00:22)
[2025-04-02 04:29] LABS: BASOPHILS # (AUTO) 0.02 K/uL (0.00-0.20); BASOPHILS % (AUTO) 0.3 % (0.0-5.0); EOSINOPHILS # (AUTO) 0.11 K/uL (0.00-0.70); EOSINOPHILS % (AUTO) 1.8 % (0.0-8.0); HEMATOCRIT 33.9 % (42-54); IMMATURE GRANULOCYTE ABSOLUTE 0.03 K/uL (0-1); LYMPHOCYTES # (AUTO) 1.1 K/uL (1.0-4.8); LYMPHOCYTES % (AUTO) 17.8 % (21.0-51.0); MEAN CORPUSCULAR HEMOGLOBIN 29.2 pg (27.0-33.0); MEAN CORPUSCULAR HGB CONC 33.9 g/dL (32.0-36.0); MONOCYTES # (AUTO) 0.7 K/uL (0.1-1.0); NEUTROPHILS # (AUTO) 4.3 K/uL (1.8-7.7); NEUTROPHILS % (AUTO) 68.6 % (40.0-77.0); PLATELET COUNT (AUTO) 268 K/uL (130-400); RED BLOOD CELL COUNT(AUTO) 3.94 MIL/uL (4.50-6.20); RED CELL DISTRIBUTION WIDTH 13.5 % (11.0-15.5); WHITE BLOOD COUNT (AUTO) 6.3 K/uL (4.8-10.8)
[2025-04-02 04:36] VITALS: BP 152/84; PULSE 78; RESP 18; TEMP 97.7
[2025-04-02 04:42] LABS: CREATININE 1.1 mg/dL (0.5-1.3); MAGNESIUM 2.1 mg/dL (1.80-2.40); PHOSPHORUS 3.1 mg/dL (2.5-4.9)
[2025-04-02 08:00] VITALS: O2SAT 98
[2025-04-02 08:12] VITALS: BP 135/71; PULSE 77; RESP 19; TEMP 97.7
[2025-04-02 12:00] VITALS: BP 154/81; PULSE 81; RESP 19; TEMP 97.9
[2025-04-02] MEDS ORDERED: MECL-226 PO (12:25)
--- NOTE | 2025-04-02 13:50 | NUR ---
PATIENT DISCHARGED. IV TAKEN OUT WITH CATHETER INTACT. EDUCATED PATIENT ON NEW MEDICATION, AND AFTERCARE. PATIENT IS WAITING ON A RIDE. HE SAID HIS RIDE WOULD NOT BE HERE FOR 30 MINUTES.
== END 2025-04-02 14:50 | disposition home or self-care (01) ==
LOC: EDH 20:59 → EDHIP 04-01 01:47 → INTOOBSV 04-01 01:47 → 4AH 04-01 02:24
PROVIDERS: ADMIT Internal Medicine; ATTEND Internal Medicine
DX: R42 Dizziness and giddiness (principal); M13.831 Other specified arthritis, right wrist; M54.12 Radiculopathy, cervical region; M47.812 Spondylosis without myelopathy or radiculopathy, cervical region; E86.0 Dehydration; D72.829 Elevated white blood cell count, unspecified; D64.9 Anemia, unspecified; R11.2 Nausea with vomiting, unspecified; M25.561 Pain in right knee; M25.562 Pain in left knee; Z90.49 Acquired absence of other specified parts of digestive tract; Z79.899 Other long term (current) drug therapy; W18.30XA Fall on same level, unspecified, initial encounter; Y93.89 Activity, other specified; Y92.89 Other specified places as the place of occurrence of the external cause; Y99.8 Other external cause status
CPT/HCPCS: 96375; 99284; 82550; 83735 ×3; 84484; 84550 ×2; 80048 ×2; 83880; 85025 ×3; 71045; 73562 ×2; 73110; 70450; 93005; 96376; 96361 ×2; 83036; 80053; 85651; 82948 ×6; 86140; 86431; 81001; 36415 ×2; 97161; 97116 ×2; 96365; 84100; 97530 ×2; J7030; J1885 ×2; A4600; J0696 ×2; G0378 ×6; 96374; 99285

== ENCOUNTER 2025-08-14 12:32 | Emergency (ER) | payer OTHER ==
[~2025-08-14] VITALS: Ht 185.4 cm; Wt 77.1 kg
[~2025-08-14 12:32] MED LIST changes: -CEFU500T67 PO; +MECL-226 PO; -POLY17PO4 PO
--- NOTE | 2025-08-14 13:13 | ERN ---
General Chief Complaint: Other Problems Stated Complaint: PINCHED NERVE ON HIS NECK Time Seen by MD: 12:33 Time Seen by Midlevel: 12:33 Source: patient History of Present Illness Initial Comments 84-year-old male is being brought in by EMS for evaluation of neck pain and a sore throat. Patient states he woke up this morning had been to bilateral posterior neck. Denies any trauma or injury. Patient states he is unable to move his neck from left to right. Denies fever. He also reports sore throat with difficulty swallowing. Patient lives alone but according to EMS family member did a wellness check. Allergies: Coded Allergies: No Known Drug Allergies (Unverified Allergy, Unknown, 12/19/21) Home Meds Active Scripts Meclizine HCl (Meclizine HCl) 12.5 Mg Tablet, 1 TAB PO BID for dizziness for 30 Days, #60 TAB 0 Refills Prov:ROBERT GODFREY MD 04/02/25 Past Medical History Past Medical History: No Pertinent History Medical History Other: Cervical radiculopathy due to disc disease Past Surgical History: None Social History Social History: Smokers ROS Dictation CONSTITUTIONAL: Negative except for HPI HEAD/FACE: Negative except for HPI EENT: Negative except for HPI RESPIRATORY: Negative except for HPI GASTROINTESTINAL/ABDOMINAL: Negative except for HPI GENITOURINARY: Negative except for HPI MUSCULOSKELETAL: Negative except for HPI INTEGUMENTARY: Negative except for HPI NEUROLOGICAL/PSYCH: Negative except for HPI HEMATOLOGIC/LYMPHATIC: Negative except for HPI All Systems Negative, Except as noted above. 13 point review of systems assessed and all negative except for above. Physical Exam Physical Exam Dictation Vital Signs reviewed General Appearance: Alert, oriented x 3, no acute distress, well developed, nourished. Head and Face: non-traumatic. Eyes: PERRL, pink conjunctivas, eyelid no trauma, anterior chamber with arcus senilis. Ears: Pinnas intact and no signs of trauma or erythema ear canals clear and no discharge TM no erythema Nose: No discharge, no bleeding. Oropharynx: Mouth normal, tongue pink, pharynx clear,no erythema, tonsils no exudates, no abscesses noted, mucous membrane moist Neck: Supple, paraspinal muscle tenderness, no thyromegaly, no masses, no JVD, no bruits Breast:Deferred Chest:No tenderness, no crepitus, no paradoxical movement, no retractions Lungs:Clear, well-ventilated, symmetric, no rales, no wheezing, no rhonchi, no stridor, good breath sounds bilaterally Heart: Regular rate, regular rhythm, no murmur, no gallops Vascular: no peripheral edema, Abdomen: Soft, positive bowel sounds, nondistended, no guarding, nontender, no rebound, no masses no hepatomegaly, no splenomegaly, no Smith's sign, no hernias. Rectal: Deferred Genital: Deferred Neurological: Normal speech, motor function intact, sensory function intact Musculoskeletal: Neck nontender, full range of motion, back nontender, full range of motion, Extremities: nontender, full range of motion Skin: Color pink, dry, no turgor, no rash, no lacerations, no abrasions, no contusions. Lymphatic: Deferred Results Laboratory and Microbiology Lab and Micro Result Laboratory Tests Test 08/14/25 15:04 Influenza Type A Antigen Negative For Type A Influenza Type B Antigen Negative For Type B SARS-CoV-2, RNA, NAAT NEGATIVE SARS CoV-2 Group A Streptococcus Rapid negative (NEGATIVE) Labs Reviewed?: Yes MDM MDM: Differential diagnosis: There are no social concerns with this patient. Prescription drug management Prescriptions will include: Medical management and examination interpretation discussions were had by me with other qualified healthcare professionals as indicated for the patient's care. ED Course Orders Procedure Category Date Status Time Covid Rna Naat LAB 08/14/25 Complete 13:02 Influenza Type A & B, LAB 08/14/25 Complete Rapid 13:02 Rapid (Group A Strep) LAB 08/14/25 Complete 13:02 Ct Cervical Spine W/O CT 08/14/25 Resulted Contrast 13:05 Ct Head/Brain W/O CT 08/14/25 Resulted Contrast 13:05 Morphine 4mg Syg PHA 08/14/25 Complete (Morphine 4mg Syg) 13:30 Current Medications Medications (Trade) Dose Ordered Sig/Madeleine Route PRN Reason Start Time Stop Time Status Last Admin Dose Admin Morphine Sulfate (morPHINE 4MG SYG) 2 mg ONCE ONCE IM 08/14/25 13:30 08/14/25 13:31 DC 08/14/25 14:58 Vital Signs Date Time Temp Pulse Resp B/P (MAP) Pulse Ox O2 Delivery O2 Flow Rate FiO2 08/14/25 15:07 98.8 82 15 126/74 98 Room Air* 0 21 08/14/25 12:33 98.8 85 18 124/78 98 0 [facility] [address] [place] [id number] IMAGING REPORT Signed PATIENT: HANNY CARMONA MR#: [id number] : 1940 SEX: M AGE: 84 LOCATION: [facility] ORDER 130 STATUS: REG ER [facility] REPORT#: [id number] SERVICE 130 REASON: neck pain ORDERING PHYSICIAN: HEIDI VALERIO PAC PROCEDURE: HEAD WO - CT HEAD/BRAIN W/O CONTRAST EXAM: CT Head Without IV contrast. CLINICAL HISTORY: neck pain TECHNIQUE: Axial computed tomography images of the head/brain without intravenous contrast. COMPARISON: Study dated 03/31/25 FINDINGS: BRAIN: There is cerebral and cerebellar atrophy with associated prominence of cortical sulci and ventricles. No evidence of acute hemorrhage. No mass lesion. No CT evidence for acute territorial infarct. No midline shift or extra-axial collections. VENTRICLES: No hydrocephalus. ORBITS: The orbits are unremarkable. SINUSES AND MASTOIDS: The paranasal sinuses and mastoid air cells are clear. BONES: No fracture. SOFT TISSUES: Unremarkable. IMPRESSION: 1. No acute intracranial findings. 2. Stable chronic ischemic and atrophic changes. /[place] DICTATED BY: MARIE LEA MD DATE: 08/14/251517 ELECTRONICALLY SIGNED BY: MARIE LEA MD DATE: 08/14/25 [facility] [address] [place] [address] [id number] IMAGING REPORT Signed PATIENT: HANNY CARMONA MR#: [id number] : 1940 SEX: M AGE: 84 LOCATION: [facility] ORDER 05 STATUS: REG ER REPORT#: [id number] SERVICE 130 REASON: neck pain ORDERING PHYSICIAN: HEIDI VALERIO PAC PROCEDURE: C SPIN WO - CT CERVICAL SPINE W/O CONTRAST EXAM: CT Cervical Spine Without IV contrast. CLINICAL HISTORY: neck pain TECHNIQUE: Axial computed tomography images of the cervical spine without intravenous contrast. Sagittal and coronal reformatted images were generated. COMPARISON: 12/20/21 FINDINGS: ALIGNMENT: Bony alignment is anatomic. Minimal dextroscoliosis likely due to patient position. DEGENERATIVE CHANGES: Degenerative changes in the form of osteophytes, endplate sclerosis and irregularities, uncovertebral joint hypertrophy, reduced disc spaces and pneumatocyst formation in the cervical spine. No significant canal stenosis or neural foraminal narrowing evident. SOFT TISSUES: 1.4 cm-sized hypodense nodule in the right lobe of the thyroid. The prevertebral soft tissues are within normal limits. BONES: No acute fracture or aggressive appearing osseous lesion. IMPRESSION: 1. No acute cervical spine osseous injury. 2. Degenerative changes as described. 3. Resolution of the lesion compressing the spinal cord at the C3-C4 level. Correlation with patient's therapeutic history suggested /[place] DICTATED BY: MUNDO MCNULTY MD DATE: 08/14/251531 ELECTRONICALLY SIGNED BY: MUNDO MCNULTY MD DATE: 08/14/251531 DX & DISP Disposition: Discharge Departure Impression: Primary Impression: Cervical radiculopathy Condition: Stable Additional Instructions: Your CT scan of the head does not show any acute intracranial abnormalities. Your CT scan of the cervical spine show improvement of your bulging disc. You were tested negative for influenza a, influenza B, COVID-19, and strep. You were given pain medication in the emergency department. Follow up with your primary care doctor next week further evaluation. Referrals: SELF,REFERRAL (PCP) Time of Disposition: 15:40 I have reviewed the case, and I agree with, Diagnosis and Plan I performed the substantive portion of the visit. I have reviewed and personally made and approve the management plan that is documented in the note by myself or the JOCELYNE. I acknowledge for responsibility for the patient's management plan. HEIDI VALERIO PAC Aug 14, 2025 13:13
--- NOTE | 2025-08-14 14:19 | HMCIMG ---
EXAM: CT Head Without IV contrast. CLINICAL HISTORY: neck pain TECHNIQUE: Axial computed tomography images of the head/brain without intravenous contrast. COMPARISON: Study dated 03/31/25 FINDINGS: BRAIN: There is cerebral and cerebellar atrophy with associated prominence of cortical sulci and ventricles. No evidence of acute hemorrhage. No mass lesion. No CT evidence for acute territorial infarct. No midline shift or extra-axial collections. VENTRICLES: No hydrocephalus. ORBITS: The orbits are unremarkable. SINUSES AND MASTOIDS: The paranasal sinuses and mastoid air cells are clear. BONES: No fracture. SOFT TISSUES: Unremarkable. IMPRESSION: 1. No acute intracranial findings. 2. Stable chronic ischemic and atrophic changes. /[place]
--- NOTE | 2025-08-14 14:32 | HMCIMG ---
EXAM: CT Cervical Spine Without IV contrast. CLINICAL HISTORY: neck pain TECHNIQUE: Axial computed tomography images of the cervical spine without intravenous contrast. Sagittal and coronal reformatted images were generated. COMPARISON: 12/20/21 FINDINGS: ALIGNMENT: Bony alignment is anatomic. Minimal dextroscoliosis likely due to patient position. DEGENERATIVE CHANGES: Degenerative changes in the form of osteophytes, endplate sclerosis and irregularities, uncovertebral joint hypertrophy, reduced disc spaces and pneumatocyst formation in the cervical spine. No significant canal stenosis or neural foraminal narrowing evident. SOFT TISSUES: 1.4 cm-sized hypodense nodule in the right lobe of the thyroid. The prevertebral soft tissues are within normal limits. BONES: No acute fracture or aggressive appearing osseous lesion. IMPRESSION: 1. No acute cervical spine osseous injury. 2. Degenerative changes as described. 3. Resolution of the lesion compressing the spinal cord at the C3-C4 level. Correlation with patient's therapeutic history suggested /[place]
[2025-08-14 15:07] VITALS: BP 126/74; PULSE 82; RESP 15; TEMP 98.8; O2SAT 98
[2025-08-14 15:28] LABS: RAPID GROUP A STREP negative (NEGATIVE)
[2025-08-14 15:33] LABS: SARS-CoV-2, RNA, NAAT NEGATIVE SARS CoV-2 (NEGATIVE)
[2025-08-14 15:38] LABS: INFLUENZA TYPE A Negative For Type A (NEGATIVE); INFLUENZA TYPE B Negative For Type B (NEGATIVE)
== END 2025-08-14 15:59 | disposition home or self-care (01) ==
LOC: EDH 12:32
DX: M54.12 Radiculopathy, cervical region (principal); R13.10 Dysphagia, unspecified; J02.9 Acute pharyngitis, unspecified; F17.200 Nicotine dependence, unspecified, uncomplicated; Z20.822 Contact with and (suspected) exposure to COVID-19
CPT/HCPCS: 99284; 70450; 87635; 87880; 87804 ×2; 72125; 96372; J2270